=== PATIENT | male | born 1995 | race Caucasian/White ===

== ENCOUNTER 2019-04-20 15:13 | Emergency (ER) | payer OTHER, SELFPAY ==
[~2019-04-20] VITALS: Ht 195.6 cm; Wt 112.3 kg
[2019-04-20 15:14] VITALS: BP 141/72
[2019-04-20] MEDS ORDERED: IBUPROFEN 800 MG TAB PO ONE (15:45)
[2019-04-20] MEDS ORDERED: CLINDAMYCIN 150 MG CAP PO ONE (15:45)
[2019-04-20] MEDS ORDERED: IBUP80TA PO (15:46)
[2019-04-20] MEDS ORDERED: CLEO300C2 PO (15:46)
== END 2019-04-20 15:53 | disposition home or self-care (01) ==
LOC: M ED 15:13
DX: K04.7 Periapical abscess without sinus (principal); Z88.0 Allergy status to penicillin

== ENCOUNTER 2020-06-29 15:53 | Emergency (ER) | payer SELFPAY ==
[~2020-06-29] VITALS: Ht 182.9 cm; Wt 109.1 kg
[~2020-06-29 15:53] MED LIST: CLEO300C2 PO; IBUP80TA PO
[2020-06-29] MEDS ORDERED: NS 1,000 ML IV ONE (16:30)
[2020-06-29 16:33] LABS: BASO % 0.3 % (0.0-1.0); EOS # 0.1 10^3/uL (0.0-0.5); EOS % 0.8 % (0.0-3.0); HEMATOCRIT 48.4 % (42.0-52.0); HEMOGLOBIN 16.7 g/dl (13.5-17.5); LYMPH # 1.5 10^3/uL (1.5-5.0); LYMPH % 14.9 % (24.0-44.0); MEAN CORPUSCULAR HEMOGLOBIN 31.4 pg (27.0-33.0); MEAN CORPUSCULAR HGB CONC 34.5 g/dl (32.0-36.5); MONO # 1.3 10^3/uL (0.0-0.8); MONO % 13.1 % (0.0-5.0); NEUTROPHILS # 6.9 10^3/uL (1.5-8.5); NEUTROPHILS % 70.3 % (36.0-66.0); PLATELET COUNT, AUTOMATED 217 10^3/uL (150-450); RED BLOOD COUNT 5.32 10^6/uL (4.30-6.10); WHITE BLOOD COUNT 9.8 10^3/uL (4.0-10.0)
[2020-06-29] MEDS ORDERED: ONDANSETRON 4MG/2ML VIAL IV ONE (16:45)
[2020-06-29 17:13] LABS: ALBUMIN 3.6 GM/DL (3.2-5.2); ALT/SGPT 22 U/L (12-78); BILIRUBIN,DIRECT 0.2 MG/DL (0.0-0.2); BLOOD UREA NITROGEN 6 MG/DL (7-18); CALCIUM LEVEL 9.3 MG/DL (8.5-10.1); CARBON DIOXIDE LEVEL 28 MEQ/L (21-32); CHLORIDE LEVEL 103 MEQ/L (98-107); CK-MB VALUE MASS < 1.0 NG/ML (<3.6); CPK CREATINE PHOSPHOKINASE 62 U/L (39-308); CREATININE FOR GFR 1.03 MG/DL (0.70-1.30); GLOMERULAR FILTRATION RATE > 60.0 (>60); GLUCOSE, FASTING 104 MG/DL (70-100); LIPASE 110 U/L (73-393); MB/CK RELATIVE INDEX 1.61 (< OR =4); POTASSIUM SERUM 3.9 MEQ/L (3.5-5.1); SODIUM LEVEL 138 MEQ/L (136-145); TOTAL PROTEIN 7.4 GM/DL (6.4-8.2); TROPONIN I < 0.02 NG/ML (< 0.10)
[2020-06-29] MEDS ORDERED: ISOVUE-370 76% 100ML VIAL As Ordered ONE (17:27)
--- NOTE | 2020-06-29 18:00 | REPVR ---
PROCEDURE INFORMATION: Exam: CT Abdomen And Pelvis With Contrast Exam date and time: 06/29/2020 5:33 PM Age: 24 years old Clinical indication: Other: Upper abd pain TECHNIQUE: Imaging protocol: Computed tomography of the abdomen and pelvis with intravenous contrast. Radiation optimization: All CT scans at this facility use at least one of these dose optimization techniques: automated exposure control; mA and/or kV adjustment per patient size (includes targeted exams where dose is matched to clinical indication); or iterative reconstruction. Contrast material: ISOVUE 370; Contrast volume: 100 ml; Contrast route: INTRAVENOUS (IV); COMPARISON: No relevant prior studies available. FINDINGS: Liver: Normal. No mass. Gallbladder and bile ducts: Normal. No calcified stones. No ductal dilation. Pancreas: Normal. No ductal dilation. Spleen: Normal. No splenomegaly. Adrenals: Normal. No mass. Kidneys and ureters: Normal. No hydronephrosis. Stomach and bowel: Multiple abnormal loops of small bowel demonstrated primarily in the lower abdomen demonstrating mural stratification, boggy edematous wall, mucosal enhancement and mild focal areas of dilatation. There is mild engorgement of the Vasa recta. There is sparing of the terminal ileum or if involved involvement is minimal at this time. Findings consistent with inflammatory bowel disease, likely Crohn disease. Appendix: No evidence of appendicitis. Intraperitoneal space: Minimal free fluid demonstrated in the dependent pelvis. Vasculature: Unremarkable. No abdominal aortic aneurysm. Lymph nodes: Unremarkable. No enlarged lymph nodes. Bladder: Unremarkable as visualized. Reproductive: Unremarkable as visualized. Bones/joints: Mild central spinal stenosis L4-L5. Soft tissues: Unremarkable. IMPRESSION: 1. Multiple abnormal loops of small bowel demonstrated primarily in the lower abdomen demonstrating mural stratification, boggy edematous wall, mucosal enhancement and mild focal areas of dilatation. There is mild engorgement of the Vasa recta. There is sparing of the terminal ileum or if involved involvement is minimal at this time. Findings consistent with inflammatory bowel disease, likely Crohn disease. 2. Minimal free fluid demonstrated in the dependent pelvis. Electronically signed by: Jimi Bassett On 06/29/2020 17:59:55 PM
[2020-06-29 18:59] VITALS: BP 112/55
--- NOTE | 2020-07-07 11:31 | ECGEPIP ---
[facility] - ED Test Date: 2020-06-29 Pat Name: VIN CARRILLO Department: Room: - Gender: Male Lead Material Handler: dalia : 1995 Requested By: DARIO Hay PA-C Order Number: [id number] Reading MD: Mariama Laurent Measurements Intervals [place] Rate: 90 P: 62 TX: 152 QRS: 16 QRSD: 88 T: 70 QT: 327 QTc: 401 Interpretive Statements SINUS RHYTHM NONSPECIFIC T-WAVE ABNORMALITY SEE SCANNED DOWNTIME REPORT
== END 2020-06-29 19:03 | disposition home or self-care (01) ==
LOC: M ED 15:53
DX: K50.90 Crohn's disease, unspecified, without complications (principal); Z88.0 Allergy status to penicillin; F17.210 Nicotine dependence, cigarettes, uncomplicated
CPT/HCPCS: 74177; 80048; 80076; 82550; 82553; 83605; 83690; 84484; 85025; 87040; 93005; 96361; 96374; 99284; J2405; Q9967

== ENCOUNTER 2021-12-13 11:17 | Emergency (ER) | payer SELFPAY ==
[~2021-12-13 11:17] MED LIST changes: +CLIN150C17 PO
[2021-12-13] MEDS ORDERED: ROCURONIUM BROMIDE 50 MG/5 ML VIAL ONE (11:18)
[2021-12-13] MEDS ORDERED: ETOMIDATE INJ 20MG/10ML VIAL ONE (11:18)
[2021-12-13 11:52] LABS: ABG BASE EXCESS -3.6 (-2.0-2.0); ABG HCO3 22.1 MEQ/L (22.0-26.0); ABG O2 SATURATION 93.9 % (95.0-99.0); ABG PARTIAL PRESSURE CO2 42.2 mmHg (35.0-45.0); ABG PARTIAL PRESSURE O2 73.2 mmHg (75.0-100.0); ABG STANDARD HCO3 21.4 MEQ/L (22.0-26.0); ABG TOTAL CO2 23.3 MEQ/L (22.0-29.0); ABG pH (ARTERIAL) 7.336 UNITS (7.350-7.450)
[2021-12-13 11:52] LABS: BASO # 0.1 10^3/uL (0.0-0.2); BASO % 0.4 % (0.0-1.0); EOS # 0.1 10^3/uL (0.0-0.5); HEMATOCRIT 46.8 % (42.0-52.0); HEMOGLOBIN 16.4 g/dl (13.5-17.5); LYMPH # 7.9 10^3/uL (1.5-5.0); LYMPH % 57.6 % (24.0-44.0); MEAN CORPUSCULAR HEMOGLOBIN 31.3 pg (27.0-33.0); MEAN CORPUSCULAR VOLUME 89.3 fl (80.0-96.0); MONO # 1.5 10^3/uL (0.0-0.8); MONO % 11.1 % (2.0-8.0); NEUTROPHILS # 4.1 10^3/uL (1.5-8.5); NEUTROPHILS % 29.4 % (36.0-66.0); PLATELET COUNT, AUTOMATED 392 10^3/uL (150-450); RED BLOOD COUNT 5.24 10^6/uL (4.30-6.10); WHITE BLOOD COUNT 13.8 10^3/uL (4.0-10.0)
[2021-12-13] MEDS ORDERED: ERYTHROMYCIN OPHTH OINT OU STA (11:56)
[2021-12-13 11:58] LABS: APPEARANCE, URINE MANUAL CLEAR (CLEAR); COLOR, URINE MANUAL YELLOW (YELLOW); GLUCOSE, URINE (UA) MANUAL NEGATIVE (NEGATIVE); INR 0.87; PH,URINE MAN 5.5 UNITS (5.0 - 7.0); PROTEIN, URINE MANUAL NEGATIVE (NEGATIVE); PROTHROMBIN TIME 12.2 SECONDS (12.7-14.5)
[2021-12-13 11:59] LABS: BILIRUBIN, URINE MANUAL NEGATIVE (NEGATIVE); BLOOD URINE MANUAL POSITIVE (NEGATIVE); KETONE, URINE MANUAL NEGATIVE (NEGATIVE); LEUKOCYTE ESTERASE, URINE MAN NEGATIVE (NEGATIVE); NITRITE, URINE MANUAL NEGATIVE (NEGATIVE); PARTIAL THROMBOPLASTIN TIME 24.6 SECONDS (25.9-37.0); UROBILINOGEN, URINE MANUAL NORMAL (NORMAL)
[2021-12-13 12:14] LABS: MUCUS, URINE SMALL AMOUNT (NEGATIVE); SPERM, URINE MOD AMOUNT
[2021-12-13 12:18] VITALS: BP 153/91
[2021-12-13 12:25] LABS: ALBUMIN 3.4 GM/DL (3.2-5.2); ALT/SGPT 19 U/L (12-78); AMYLASE 29 U/L (25-115); BILIRUBIN,DIRECT 0.2 MG/DL (0.0-0.2); BILIRUBIN,TOTAL 1.3 MG/DL (0.2-1.0); CK-MB VALUE MASS 2.3 NG/ML (<3.6); ETHYL ALCOHOL (ETHANOL) < 0.003 % (0.000-0.010); LIPASE 86 U/L (73-393); MB/CK RELATIVE INDEX 1.04 (< OR =4)
[2021-12-13] MEDS ORDERED: ETOMIDATE INJ 20MG/10ML VIAL IV STA (12:36)
[2021-12-13] MEDS ORDERED: ROCURONIUM BROMIDE 50 MG/5 ML VIAL IV SCH (12:40)
[2021-12-13 12:44] LABS: AMPHETAMINES LEVEL URINE POSITIVE (NEGATIVE); BARBITURATES URINE NEGATIVE (NEGATIVE); BENZODIAZEPINES URINE NEGATIVE (NEGATIVE); CANNABINOIDS URINE NEGATIVE (NEGATIVE); COCAINE METABOLITE URINE NEGATIVE (NEGATIVE); METHADONE URINE NEGATIVE (NEGATIVE); OPIATES URINE NEGATIVE (NEGATIVE); PHENCYCLIDINE URINE NEGATIVE (NEGATIVE)
[2021-12-13] MEDS ORDERED: NS 1,000 ML IV ONE ×2 (13:00)
[2021-12-13] MEDS ORDERED: LR 1,000 ML IV ONE ×2 (13:00)
== END 2021-12-13 12:21 | disposition short-term general hospital (02) ==
LOC: M ED 11:17
DX: J96.90 Respiratory failure, unspecified, unspecified whether with hypoxia or hypercapnia (principal); T30.0 Burn of unspecified body region, unspecified degree; T31.7 Burns involving 70-79% of body surface; X00.0XXA Exposure to flames in uncontrolled fire in building or structure, initial encounter; Y92.018 Other place in single-family (private) house as the place of occurrence of the external cause